=== PATIENT | female | born 1990 | race Caucasian/White ===

== ENCOUNTER 2016-04-16 20:29 | Emergency (ER) | payer BC, OTHER ==
[~2016-04-16] VITALS: Ht 162.6 cm; Wt 72.8 kg
[~2016-04-16 20:29] MED LIST: MTR600X PO; PRENTAB26 PO
[2016-04-16 20:33] VITALS: BP 130/88; PULSE 78; TEMP 36.9; O2SAT 99; Ht 162.6 cm; Wt 72.8 kg
[2016-04-16] MEDS ORDERED: ACETAMINOPHEN 500 MG TAB PO STA (21:04)
--- NOTE | 2016-04-16 21:04 | EMERGENCY ROOM VISIT NOTE ---
ED Visit Note First contact with patient: 20:47 CHIEF COMPLAINT: Head injury HISTORY OF PRESENT ILLNESS: This 25-year-old female patient presented to the emergency department ambulatory after receiving a head injury when she slipped and fell backwards on the steps today. There was no brief loss of consciousness or vomiting. No difficulty with speech. The headache has been moderate. The patient complains of no neck pain. No loss of appetite or unusual behavior since the injury. She has had headache, lightheadedness, dizziness, nausea and fatigue The patient has taken nothing for the pain. The patient rates the pain as 5/10 and mild. The patient denies any changes in their vision or hearing. The patient denies bowel or bladder dysfunction. The patient denies abdominal pain. REVIEW OF SYSTEMS: A 10 system review of systems was completed with positives and pertinent negatives listed in the HPI. ALLERGIES: Macrobid MEDICATIONS: None PMH: Patient denies SOCIAL HISTORY: The patient lives locally with family. She does not smoke PHYSICAL EXAM: Vital Signs: Reviewed Nurse's notes, vital signs stable. GENERAL : This is a 25-year-old female, in no acute distress, well-developed, well- nourished. NEURO: The patient is alert, oriented to person place and time, and coherent. Normal mini mental status exam. Negative Romberg and pronator drift. Cerebellar function intact. HEAD: Normocephalic and atraumatic. EYES: Pupils are equal round and reactive to light and accommodation. EOMs are full and optic discs and fundi are normal. There is no swelling or discoloration of the tissue surrounding the eyes. EARS: External auditory canals clear without blood. NOSE: Patent without tenderness. No septal hematoma. FACE: No facial tenderness. NECK: Supple. There is no cervical spine tenderness. The patient does not have tenderness with movement of the neck. ED COURSE: I examined the patient. She was given Tylenol. CT scan of the brain was negative for intracranial bleeding or skull fracture. The patient likely has a concussion. She was given instructions on head injury, concussion and follow-up with the concussion clinic. She should return with any worsening symptoms The patient was discharged home in good condition ambulatory. CT HEAD WITHOUT CONTRAST (CT) CLINICAL HISTORY: Head pain status post head trauma. Closed head injury. COMPARISON STUDY: No previous studies for comparison. TECHNIQUE: Axial CT of the brain is performed from the vertex to the skull base. IV contrast was not administered for this examination. CT DOSE: 537.48 mGy.cm FINDINGS: No intra or extra-axial mass lesions are visualized. There is no CT evidence of acute cortical infarction. There is no evidence of midline shift. There is no acute hemorrhage. No calvarial fractures are visualized. There is no evidence of pathologic ventricular dilatation. There is partial opacification of the sphenoid sinus. IMPRESSION: 1. Partial opacification of the sphenoid sinus 2. No evidence of acute intracranial injury DIAGNOSIS: Head injury GCS 15 Current/Historical Medications No Active Prescriptions or Reported Meds Allergies Coded Allergies: Nitrofurantoin (Verified Allergy, Unknown, `, 04/16/16) Vital Signs Date Time Temp Pulse Resp B/P Pulse Ox O2 Delivery O2 Flow Rate FiO2 04/16/16 20:33 36.9 78 18 130/88 99 Room Air Medications Administered Medications (Trade) Dose Ordered Sig/Mitchell Route Start Time Stop Time Status Last Admin Dose Admin Acetaminophen (Tylenol Tab) 1,000 mg NOW STAT PO 04/16/16 21:04 04/16/16 21:05 DC 04/16/16 21:12 1,000 MG Departure Information Impression Primary Impression: CHI (closed head injury) Additional Impression: Concussion Dispostion Home / Self-Care Condition GOOD Prescriptions No Active Prescriptions or Reported Meds Referrals Jenniffer Montgomery DO (PCP) Forms HOME CARE DOCUMENTATION FORM, IMPORTANT VISIT INFORMATION, Work Instructions Return To Work: 3 days Patient Instructions ED Concussion, [facility] Additional Instructions Contact the concussion clinic at [facility] sports medicine ([phone]) to schedule a follow-up appointment for further evaluation and management. Their office is located at [address] [place] [address]. [address] No gym or athletics for one week after symptoms resolve Motrin 600mg every 6-8 hours for pain Problem Qualifiers Primary Impression: CHI (closed head injury) Encounter type: initial encounter Qualified Codes: S09.90XA - Unspecified injury of head, initial encounter Additional Impression: Concussion Encounter type: initial encounter Loss of consciousness presence/duration: without LOC Qualified Codes: S06.0X0A - Concussion without loss of consciousness, initial encounter
--- NOTE | 2016-04-16 21:39 | DIAGNOSTIC IMAGING REPORT ---
CT HEAD WITHOUT CONTRAST (CT) CLINICAL HISTORY: Head pain status post head trauma. Closed head injury. COMPARISON STUDY: No previous studies for comparison. TECHNIQUE: Axial CT of the brain is performed from the vertex to the skull base. IV contrast was not administered for this examination. CT DOSE: 537.48 mGy.cm FINDINGS: No intra or extra-axial mass lesions are visualized. There is no CT evidence of acute cortical infarction. There is no evidence of midline shift. There is no acute hemorrhage. No calvarial fractures are visualized. There is no evidence of pathologic ventricular dilatation. There is partial opacification of the sphenoid sinus. IMPRESSION: 1. Partial opacification of the sphenoid sinus 2. No evidence of acute intracranial injury Electronically signed by: Karri Zhang M.D. 04/16/2016 9:37 PM Dictated Date/Time: 04/16/2016 9:36 PM
== END 2016-04-16 22:49 | disposition home or self-care (01) ==
LOC: C.EDB 20:32 → C.EDD 22:49
DX: S06.0X0A Concussion without loss of consciousness, initial encounter (principal); W10.9XXA Fall (on) (from) unspecified stairs and steps, initial encounter

== ENCOUNTER → 2016-08-25 | Outpatient (CLI) | payer OTHER ==
[~2016-08-25] MED LIST changes: -MTR600X PO; +MULT-240 PO; -PRENTAB26 PO
== END | disposition home or self-care (01) ==
LOC: C.PAPS 11:26
PROVIDERS: ATTEND Obstetrics & Gynecology
DX: Z12.4 Encounter for screening for malignant neoplasm of cervix (principal)

== ENCOUNTER 2016-10-01 15:49 | Emergency (ER) | payer OTHER ==
[~2016-10-01] VITALS: Ht 162.6 cm; Wt 69.0 kg
[2016-10-01 16:06] VITALS: TEMP 36.9; Ht 162.6 cm; Wt 69.0 kg
[2016-10-01] MEDS ORDERED: MULT-240 PO (16:33)
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
[2016-10-01 18:22] VITALS: BP 124/79; PULSE 78; O2SAT 98
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
== END 2016-10-01 18:24 | disposition home or self-care (01) ==
LOC: EDBD 15:49 → C.EDA 15:51
DX: S00.83XA Contusion of other part of head, initial encounter (principal); V49.50XA Passenger injured in collision with unspecified motor vehicles in traffic accident, initial encounter; Y92.488 Other paved roadways as the place of occurrence of the external cause; J34.89 Other specified disorders of nose and nasal sinuses; Z83.3 Family history of diabetes mellitus; Z82.49 Family history of ischemic heart disease and other diseases of the circulatory system

== ENCOUNTER 2017-06-02 21:06 | Emergency (ER) | payer OTHER ==
[~2017-06-02] VITALS: Ht 162.6 cm; Wt 73.8 kg
[2017-06-02 21:08] VITALS: TEMP 37.1; Ht 162.6 cm; Wt 73.8 kg
[2017-06-02] MEDS ORDERED: ONDANSETRON INJ 2 MG/ML 2 ML VIAL IV STA (21:20)
[2017-06-02] MEDS ORDERED: SODIUM CHLORIDE 0.9% 1000ML 1,000 ML IV STA (21:20)
[2017-06-02 21:56] LABS: BASO % 0.3 %; BASO ABS # 0.02 K/uL (0-0.2); EOS % 1.8 %; EOS ABS # 0.13 K/uL (0-0.5); HEMATOCRIT 45.2 % (37-47); HEMOGLOBIN 15.6 g/dL (12.0-16.0); IG# 0.01 K/uL (0.00-0.02); LYMPH % 33.3 %; LYMPH ABS # 2.46 K/uL (1.2-3.4); MEAN CELL VOLUME 83.7 fL (80-100); MEAN CORPUSCULAR HEMOGLOBIN 28.9 pg (25-34); MEAN CORPUSCULAR HGB CONC 34.5 g/dl (32-36); MEAN PLATELET VOLUME 9.4 fL (7.4-10.4); MONO % 11.2 %; MONO ABS # 0.83 K/uL (0.11-0.59); NEUT % 53.3 %; NEUT ABS # 3.93 K/uL (1.4-6.5); PLATELET COUNT 266 K/uL (130-400); RED CELL DISTRIBUTION WIDTH CV 12.3 % (11.5-14.5); RED CELL DISTRIBUTION WIDTH SD 37.2 fL (36.4-46.3); WHITE BLOOD COUNT 7.38 K/uL (4.8-10.8)
[2017-06-02 22:14] LABS: ALBUMIN 4.6 gm/dl (3.4-5.0); CALCIUM 9.3 mg/dl (8.5-10.1); CREATININE 0.78 mg/dl (0.60-1.20); POTASSIUM 3.3 mmol/L (3.5-5.1)
[2017-06-02 22:17] LABS: TOTAL PROTEIN 9.6 gm/dl (6.4-8.2)
--- NOTE | 2017-06-02 22:47 | DIAGNOSTIC IMAGING REPORT ---
ABD/PELVIS WITHOUT FOR STONE HISTORY: 27 years-old Female flank pain hematuria with acute bilateral flank pain COMPARISON: None available TECHNIQUE: Multiple axial CT images of the abdomen and pelvis were obtained without contrast. A dose lowering technique was used consistent with the principals of STANLEY. FINDINGS: The lung bases are generally clear. No pneumatosis or pneumoperitoneum identified. Imaged inferior cardiac chambers are unremarkable. Liver, gallbladder, spleen, pancreas and adrenal glands are within normal limits. The left kidney and ureter are unremarkable. There is mild right-sided perinephric stranding with mild dilation of the renal pelvis and proximal right ureter. No obstructing calculus or lesion identified. The remainder of the right ureter appears normal in caliber. Urinary bladder, uterus and adnexa are unremarkable. Trace free pelvic fluid, likely physiologic. Aorta is normal in course and caliber. No bulky adenopathy. There is no bowel obstruction or focal bowel wall thickening identified. The appendix is not definitively seen. No secondary signs of acute appendicitis. Soft tissues are unremarkable. Mild diastases recti. Bones appear to be intact. IMPRESSION: 1. Mild right-sided perinephric stranding with mild dilation of the right renal pelvis and proximal right ureter. No obstructing stone or lesion identified. These findings may be secondary to recently passed calculus or ascending infectious process. Correlate with urinalysis. 2. No bowel obstruction or focal bowel wall thickening. The above report was generated using voice recognition software. It may contain grammatical, syntax or spelling errors. Electronically signed by: Del Dickens M.D. 06/02/2017 10:46 PM Dictated Date/Time: 06/02/2017 10:36 PM
[2017-06-02 22:50] VITALS: BP 108/66; PULSE 85; O2SAT 97
--- NOTE | 2017-06-02 22:58 | EMERGENCY ROOM VISIT NOTE ---
History Report prepared by Roosevelt: Karla Guidry Under the Supervision of: Dr. Denny Rios D.O. First contact with patient: 21:19 Chief Complaint: HEMATURIA Stated Complaint: HEMATURIA, FLANK PAIN, DEHYDRATED History of Present Illness The patient is a 27 year old female who presents to the Emergency Room with complaints of persistent hematuria starting 2 weeks ago. She has been urinating more frequently. She started having flank pain several days ago. She rates her discomfort as a 6/10 in severity. She denies any fever. Her last menstrual period was 2 weeks ago. She has a history of kidney stones. Source of History: patient Onset: 2 weeks ago Position: other (urinary) Symptom Intensity: 6/10 Quality: other (hematuria) Timing: other (persistent) Associated Symptoms: No fevers Note: Pt reports flank pain. Review of Systems See HPI for pertinent positives & negatives. A total of 10 systems reviewed and were otherwise negative. Past Medical & Surgical Medical Problems: (1) 39 weeks gestation of (2) Normal labor Surgical Problems: (1) History of wisdom tooth extraction Family History Diabetes mellitus Hypertension Social History Smoking Status: Never Smoker Alcohol Use: none Drug Use: none Marital Status: Housing Status: lives with family Occupation Status: employed Current/Historical Medications Scheduled Multiple Vitamins W/ Minerals (Womens One Daily), 1 TAB PO DAILY Allergies Coded Allergies: Nitrofurantoin (Verified Allergy, Unknown, `, 06/02/17) Physical Exam Vital Signs Date Time Temp Pulse Resp B/P (MAP) Pulse Ox O2 Delivery O2 Flow Rate FiO2 06/02/17 22:50 85 18 108/66 97 Room Air 06/02/17 21:08 37.1 96 18 119/78 96 Room Air Physical Exam CONSTITUTIONAL/VITAL SIGNS: Reviewed / noted above. GENERAL: Non-toxic in appearance. INTEGUMENTARY: Warm, dry, and [place]. HEAD: Normocephalic. EYES: without scleral icterus or trauma. ENT/OROPHARYNX: clear and moist. LYMPHADENOPATHY/NECK: Is supple without lymphadenopathy or meningismus. RESPIRATORY: Lungs clear and equal. CARDIOVASCULAR: Regular rate and rhythm. GI/ABDOMEN: Soft with mild left sided abdominal tenderness. No organomegaly or pulsatile mass. No rebound or guarding. Normal bowel sounds. EXTREMITIES: Warm and well perfused. BACK: Left CVA tenderness. NEUROLOGICAL: Intact without focal deficits. PSYCHIATRIC: normal affect. MUSCULOSKELETAL: Normally developed with good muscle tone. Medical Decision & Procedures ER Provider Diagnostic Interpretation: Radiology results as stated below per my review and radiologist interpretation: ABD/PELVIS WITHOUT FOR STONE HISTORY: 27 years-old Female flank pain hematuria with acute bilateral flank pain COMPARISON: None available TECHNIQUE: Multiple axial CT images of the abdomen and pelvis were obtained without contrast. A dose lowering technique was used consistent with the principals of STANLEY. FINDINGS: The lung bases are generally clear. No pneumatosis or pneumoperitoneum identified. Imaged inferior cardiac chambers are unremarkable. Liver, gallbladder, spleen, pancreas and adrenal glands are within normal limits. The left kidney and ureter are unremarkable. There is mild right-sided perinephric stranding with mild dilation of the renal pelvis and proximal right ureter. No obstructing calculus or lesion identified. The remainder of the right ureter appears normal in caliber. Urinary bladder, uterus and adnexa are unremarkable. Trace free pelvic fluid, likely physiologic. Aorta is normal in course and caliber. No bulky adenopathy. There is no bowel obstruction or focal bowel wall thickening identified. The appendix is not definitively seen. No secondary signs of acute appendicitis. Soft tissues are unremarkable. Mild diastases recti. Bones appear to be intact. IMPRESSION: 1. Mild right-sided perinephric stranding with mild dilation of the right renal pelvis and proximal right ureter. No obstructing stone or lesion identified. These findings may be secondary to recently passed calculus or ascending infectious process. Correlate with urinalysis. 2. No bowel obstruction or focal bowel wall thickening. The above report was generated using voice recognition software. It may contain grammatical, syntax or spelling errors. Electronically signed by: Del Dickens M.D. 06/02/2017 10:46 PM Dictated Date/Time: 06/02/2017 10:36 PM Laboratory Results 06/02/17 21:45 Red Blood Count 5.40, Mean Corpuscular Volume 83.7, Mean Corpuscular Hemoglobin 28.9, Mean Corpuscular Hemoglobin Concent 34.5, Mean Platelet Volume 9.4, Neutrophils (%) (Auto) 53.3, Lymphocytes (%) (Auto) 33.3, Monocytes (%) (Auto) 11.2, Eosinophils (%) (Auto) 1.8, Basophils (%) (Auto) 0.3, Neutrophils # (Auto ) 3.93, Lymphocytes # (Auto) 2.46, Monocytes # (Auto) 0.83, Eosinophils # (Auto ) 0.13, Basophils # (Auto) 0.02 06/02/17 21:45 Test 06/02/17 21:45 06/02/17 22:00 White Blood Count 7.38 K/uL (4.8-10.8) Red Blood Count 5.40 M/uL (4.2-5.4) Hemoglobin 15.6 g/dL (12.0-16.0) Hematocrit 45.2 % (37-47) Mean Corpuscular Volume 83.7 fL (80-100) Mean Corpuscular Hemoglobin 28.9 pg (25-34) Mean Corpuscular Hemoglobin Concent 34.5 g/dl (32-36) Platelet Count 266 K/uL (130-400) Mean Platelet Volume 9.4 fL (7.4-10.4) Neutrophils (%) (Auto) 53.3 % Lymphocytes (%) (Auto) 33.3 % Monocytes (%) (Auto) 11.2 % Eosinophils (%) (Auto) 1.8 % Basophils (%) (Auto) 0.3 % Neutrophils # (Auto) 3.93 K/uL (1.4-6.5) Lymphocytes # (Auto) 2.46 K/uL (1.2-3.4) Monocytes # (Auto) 0.83 K/uL (0.11-0.59) Eosinophils # (Auto) 0.13 K/uL (0-0.5) Basophils # (Auto) 0.02 K/uL (0-0.2) RDW Standard Deviation 37.2 fL (36.4-46.3) RDW Coefficient of Variation 12.3 % (11.5-14.5) Immature Granulocyte % (Auto) 0.1 % Immature Granulocyte # (Auto) 0.01 K/uL (0.00-0.02) Anion Gap 7.0 mmol/L (3-11) Est Creatinine Clear Calc Drug Dose 104.8 ml/min Estimated GFR () 119.1 Estimated GFR (Non- 102.7 BUN/Creatinine Ratio 7.6 (10-20) Calcium Level 9.3 mg/dl (8.5-10.1) Total Bilirubin 0.4 mg/dl (0.2-1) Direct Bilirubin 0.1 mg/dl (0-0.2) Aspartate Amino Transf (AST/SGOT) 14 U/L (15-37) Alanine Aminotransferase (ALT/SGPT) 29 U/L (12-78) Alkaline Phosphatase 109 U/L (45-117) Total Protein 9.6 gm/dl (6.4-8.2) Albumin 4.6 gm/dl (3.4-5.0) Lipase 100 U/L (73-393) Urine Color YELLOW Urine Appearance CLEAR (CLEAR) Urine pH 6.0 (4.5-7.5) Urine Specific [place] 1.005 (1.000-1.030) Urine Protein NEG (NEG) Urine Glucose (UA) NEG (NEG) Urine Ketones NEG (NEG) Urine Occult Blood TRACE (NEG) Urine Nitrite NEG (NEG) Urine Bilirubin NEG (NEG) Urine Urobilinogen NEG (NEG) Urine Leukocyte Esterase NEG (NEG) Urine WBC (Auto) 0 /hpf (0-5) Urine RBC (Auto) 0-4 /hpf (0-4) Urine Hyaline Casts (Auto) 0 /lpf (0-5) Urine Epithelial Cells (Auto) 5-10 /lpf (0-5) Urine Bacteria (Auto) NEG (NEG) Urine Test NEG (NEG) Laboratory results as stated above per my review. Medications Administered Medications (Trade) Dose Ordered Sig/Mitchell Route Start Time Stop Time Status Last Admin Dose Admin Sodium Chloride 1,000 ml @ 999 mls/hr Q1H1M STAT IV 06/02/17 21:20 06/02/17 22:20 DC 06/02/17 21:43 999 MLS/HR Ondansetron HCl (Zofran Inj) 4 mg NOW STAT IV 06/02/17 21:20 06/02/17 21:21 DC 06/02/17 21:43 4 MG ED Course 2119: Zofran Inj 4 mg IV, NSS 1000 ml @ 999 mls/hr IV. 2120: Previous medical records were reviewed. The patient was evaluated in room C6. A complete history and physical examination was performed. 9: On reevaluation, the patient is resting comfortably. I discussed the results and findings with the patient. She verbalized agreement of the treatment plan. She was discharged home. Medical Decision Differential considered: pancreatitis, hepatitis, or acute cholecystitis, AAA, UTI, pyelonephritis, kidney stones, appendicitis, diverticulitis, shingles, bowel obstruction mesenteric ischemia, intussusception,hernia, ovarian torsion, ruptured ovarian cyst,ectopic , . This is a 27-year-old female who presents to the ED with a chief complaint of hematuria. The patient reports hematuria 2 weeks. She states that she was at [facility] today and had a urine sample done but she states that they did not tell her anything. She denies any fevers. Her last mental period was 2 weeks ago. She does report increased frequency in urination. Vital signs are stable. Her physical exam did reveal left-sided CVA tenderness and mild left lower quadrant abdominal tenderness. The patient CBC and complete metabolic panel are normal. Lipase was negative. CT scan of the abdomen pelvis reveals some mild right-sided perinephric stranding. This could represent an infection versus a recently passed stone. Urinalysis did not show infection. The patient was told the results of the test. She was treated with IV fluids and Zofran IV. She is felt to be stable for discharge. Medication Reconcilliation Current Medication List: was personally reviewed by me Blood Pressure Screening Patient's blood pressure: Normal blood pressure Blood pressure disposition: Did not require urgent referral Impression Primary Impression: Hematuria Scribe Attestation The scribe's documentation has been prepared under my direction and personally reviewed by me in its entirety. I confirm that the note above accurately reflects all work, treatment, procedures, and medical decision making performed by me. Departure Information Dispostion Home / Self-Care Referrals Jenniffer Montgomery DO (PCP) Patient Instructions My [facility] Additional Instructions Your test results today did not show any acute abnormalities. Follow-up with your doctor for further evaluation.
== END 2017-06-02 23:06 | disposition home or self-care (01) ==
LOC: C.EDB 21:07 → C.EDC 23:06
DX: R31.9 Hematuria, unspecified (principal); R35.0 Frequency of micturition; Z82.49 Family history of ischemic heart disease and other diseases of the circulatory system; Z83.3 Family history of diabetes mellitus; Z88.1 Allergy status to other antibiotic agents

== ENCOUNTER 2019-08-19 13:12 | Inpatient (IN) ==
--- OUTSIDE RECORDS SUMMARY | 2019-08-19 13:14 | External Medical Summary | Continuity of Care Document ---
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 Refills: 0 Amoxicillin CAPS , M.D. Refills: 0 Procedures History of Oral Surgery Tooth Extraction Status: Completed Immunizations HPV (Gardasil) On: 29-Sep-2009 HPV (Gardasil) On: 29-Jan-2010 15:14 Lot #: [id number], [employer] HPV (Gardasil) On: 29-May-2010 15:19 Lot #: [id number], [employer] Family History Grandmother Family history of Diabetes Mellitus (V18.0) Status: Active Social History - Smoking Status Tobacco smoking consumption unknown Ex-smoker Plan of Treatment Planned Observations Planned Goals not documented Results No Known Results Results not documented Encounters Appointment; Rosie Thomason M.D. 13-Oct-2018 14:00 Encounter Diagnosis: Problem not documented Appointment; Rosie Thomason M.D. 05-Dec-2017 14:50 Encounter Diagnosis: Problem not documented
--- OUTSIDE RECORDS SUMMARY | 2019-08-19 13:15 | External Medical Summary | Continuity of Care Document ---
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
[2019-08-19] MEDS ORDERED: SODIUM CHLORIDE 0.9% 1000ML 1,000 ML IV ONE (13:33)
[2019-08-19] MEDS ORDERED: KETOROLAC 30 MG/ML VIAL IV STA (14:04)
[2019-08-19] MEDS ORDERED: DEXAMETHASONE **PF** INJ 10 MG/ML VIAL IV ONE (14:04)
[2019-08-19] MEDS ORDERED: CLINDAMYCIN 900 MG in DEXTROSE 5% 50 ML IV ONE (14:04)
[2019-08-19 14:11] LABS: Basophils # (auto) 0.02 K/uL (0-0.2); Basophils % (auto) 0.2 %; Eosinophils # (auto) 0.28 K/uL (0-0.5); Hematocrit (blood only) 39.7 % (37-47); Hemoglobin 13.5 g/dL (12.0-16.0); Immature Granulocytes # (auto) 0.02 K/uL (0.00-0.02); Immature Granulocytes % (auto) 0.2 %; Lymphocytes # (auto) 1.68 K/uL (1.2-3.4); Lymphocytes % (auto) 17.7 %; Mean Corpuscular Hemoglobin 29.3 pg (25-34); Mean Corpuscular Volume 86.1 fL (80-100); Mean Platelet Volume 9.3 fL (7.4-10.4); Monocytes # (auto) 0.96 K/uL (0.11-0.59); Monocytes % (auto) 10.1 %; Neutrophils # (auto) 6.53 K/uL (1.4-6.5); Neutrophils % (auto) 68.8 %; Platelet Count 286 K/uL (130-400); RDW Coefficient of Variation 12.3 % (11.5-14.5); RDW Standard Deviation 38.3 fL (36.4-46.3); Red Blood Count 4.61 M/uL (4.2-5.4); White Blood Count 9.49 K/uL (4.8-10.8)
[2019-08-19 14:19] LABS: Albumin Level 3.9 gm/dl (3.4-5.0); BUN Creatinine Ratio 12.2 (10-20); Calcium 9.1 mg/dl (8.5-10.1); Creatinine Clr Calc Pharmacy 107.6 ml/min; Est GFR (African American) 127.2; Est GFR (Non-African American) 109.7; Potassium 3.6 mmol/L (3.5-5.1)
[2019-08-19 14:23] LABS: Albumin Globulin Ratio 0.8 (0.9-2); Bilirubin,Total 0.7 mg/dl (0.2-1); Globulin 5.1 gm/dl (2.5-4.0)
--- NOTE | 2019-08-19 15:12 | Emergency Department Note ---
History of Present Illness General Chief complaint: Throat Pain Stated complaint: ABCESS IN BACK OF THROAT Time Seen by Provider: 08/19/19 13:25 History of Present Illness Maximum Pain Intensity: 6 29-year-old female who presents to the emergency department with complaint of possible peritonsillar abscess. The patient reports that she has had a sore throat for the past 2 weeks. She does report history of recurrent strep tonsillitis as a child. She reports that she was seen by ENT who recommended tonsillectomy, but the patient never had the procedure performed. The patient reports difficulty eating and drinking fluids now. The patient has not had anything to eat since last night. She did drink some water on the way to a [facility] urgent care clinic this morning, where they redirected her to the emergency department for further treatment. The patient denies any fever or c hills. She currently rates her discomfort an 8 out of 10. Home Medications Home Medications Medication Instructions Recorded Confirmed Type ttuuywd-gxiitevietnlv-avaqiqoq 2 tab PO Q6H PRN 08/19/19 08/19/19 History [Excedrin Extra Strength] cc-np-eutz-FA-Ca carb-vit K 1 tab PO QAM 08/19/19 08/19/19 History [Women's Multivitamin] Allergies Allergy/AdvReac Type Severity Reaction Status Date / Time nitrofurantoin Allergy Unknown ` Verified 08/19/19 14:26 Past Med/Surg History Medical History Concussion (Acute) Recurrent streptococcal tonsillitis Surgical History History of wisdom tooth extraction Social History Preferred Language: Romanian Communication Ability: Effective 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 Required: No Beliefs That Will Affect Care: None marital status: Single Current Living Situation: Family and Other Current Living Situation Comment: 2 children current occupational status: employed Other Information That Helps Us Care for You: No Feels Safe at Home: Yes Safety Concerns: Feels Safe At This Time Smoking Status: Never smoker Hx Alcohol Use: Yes Alcohol type: beer, wine and hard liquor Hx Substance Use: No Review of Systems 10 system review was performed and was negative except for pertinent positives and negatives as indicated in history of present illness Physical Exam Vital Signs Vital Signs - 24 hr 08/19/19 13:15 08/19/19 15:15 08/19/19 17:15 Temperature 36.7 C Temperature Source Oral Pulse Rate 89 Pulse Rate [Finger] 70 72 Pulse Rhythm Regular Pulse Rhythm [Finger] Regular Regular Pulse Strength Normal Pulse Strength [Finger] Normal Normal Respiratory Rate 18 18 18 Respiratory Effort / Characteristics Non-Labored Spontaneous Non-Labored Spontaneous Non-Labored Spontaneous Respiratory Depth Normal Normal Normal Respiratory Pattern Regular Regular Regular Blood Pressure 120/75 Blood Pressure [Right Arm] 104/67 Blood Pressure Mean 90 Blood Pressure Mean [Right Arm] 79 Blood Pressure Position Sitting Blood Pressure Position [Right Arm] Lying Pulse Oximetry 97 98 99 Oxygen Delivery Method Room Air Room Air Room Air Sepsis Recent Fever Within 48 Hours No Sepsis New/Unexplained Change in Mental Status No Sepsis Action Taken by Nursing No Action Required CONSTITUTIONAL: Healthy and well nourished. Alert and oriented X 3. Patient does not appear acutely ill or toxic, and also does not appear in any acute distress. HEENT: Normocephalic, atraumatic. Pupils equal, round and reactive. No facial edema noted. Ears and nares are clear. Examination of the oropharynx shows a notable trismus with the patient only able to open her incisors approximately 2 cm. She also has notable left tonsillar hypertrophy with mild uvular deviation. Minimal exudates noted. No elevated tongue or evidence for Eduardo's angina. NECK: Full active range of motion without discomfort. LYMPHATICS: Mild anterior cervical chain adenopathy noted. RESPIRATORY: Clear to auscultation bilaterally with no wheezing, crackles, rhonchi or stridor. CARDIOVASCULAR: Regular rate and rhythm with no murmurs, rubs or gallops. GASTROINTESTINAL: Bowel sounds present in all quadrants. Soft and nontender wi thout hepatosplenomegaly. MUSCULOSKELETAL: Full range of motion of all joints without discomfort. INTEGUMENTARY: No rash or other significant dermatologic conditions noted. HEMATOLOGIC: No ecchymosis or petechiae. PSYCHIATRIC: Positive affect. NEUROLOGIC: No focal neurologic deficits noted. Course Course Patient history and physical exam were performed. Nurse's notes were reviewed. Vital signs were reviewed and were normal. IV access was established, and labs were drawn. The patient was hydrated with a liter normal saline, and administered IV Decadron, clindamycin and Toradol. In the meantime, I did contact Dr. Dailey, ENT on-call, who requested a CT of the neck to determine the size of the tonsillar abscess. She also agreed with current medication management, and asked that I return the call once CT imaging has been completed. The patient did report mild relief of symptoms with the above treatment. Labs were reviewed to show no significant leukocytosis or other abnormal labs. CT of the neck with IV contrast confirms a peritonsillar abscess with mild airway narrowing. The case was further re-discussed with Dr. Dailey who has recommended admission for IV antibiotics, and she will reassess the patient tomorrow. The case was also discussed with Dr. Rios, ED attending physician, who [facility] (Dr. Delong). Please see their dictations for further treatment and final disposition. Administered Medications Ampicillin Sodium/Sulbactam Sodium 3,000 mg/ Sodium Chloride 108 mls @ 200 mls /hr IV Q6H AELYDA; Protocol Stop: 08/29/19 19:59 Last Infusion: 08/19/19 21:15 Dose: 0 mls/hr Documented by: [id number] Admin: 08/19/19 20:39 Dose: 200 mls/hr Documented by: [id number] Dexamethasone Sodium Phosphate (10 mg/ Syringe) 2.5 mls @ 1 mls/min IV Q8 ALEYDA Stop: 08/20/19 14:03 Last Admin: 08/19/19 22:53 Dose: 1 mls/min Documented by: [id number] Sodium Chloride (Nss) 500 mls @ 60 mls/hr IV .Q8H20M ALEYDA Stop: 08/20/19 04:49 Last Admin: 08/19/19 20:39 Dose: 60 mls/hr Documented by: [id number] Discontinued Medications Dexamethasone Sodium Phosphate (Decadron Pf) 10 mg IV NOW ONE Stop: 08/19/19 14:05 Last Admin: 08/19/19 14:41 Dose: 10 mg Documented by: [id number] Sodium Chloride (Nss 1000ml) 1,000 mls @ 999 mls/hr IV .Q1H1M ONE Stop: 08/19/19 14:33 Last Infusion: 08/19/19 15:01 Dose: 0 mls/hr Documented by: [id number] Admin: 08/19/19 14:00 Dose: 999 mls/hr Documented by: [id number] Clindamycin Phosphate 900 mg/ (Dextrose) 56 mls @ 112 mls/hr IV ONE ONE Stop: 08/19/19 14:33 Last Infusion: 08/19/19 15:11 Dose: 0 mls/hr Documented by: [id number] Admin: 08/19/19 14:41 Dose: 112 mls/hr Documented by: [id number] Ioversol (Optiray 320 100ml) 93 ml IV ONCE PRN PRN Reason: Interaction Checking Stop: 08/23/19 15:26 Last Admin: 08/19/19 15:32 Dose: 93 ml Documented by: [id number] Ketorolac Tromethamine (Toradol) 30 mg IV NOW STA Stop: 08/19/19 14:05 Last Admin: 08/19/19 14:41 Dose: 30 mg Documented by: [id number] Medical Decision Making Medical Records Attestation: I reviewed the patient's medical records. Home Medications Current Medication List: was personally reviewed by me Laboratory Data Attestation: I reviewed the patient's lab results. Result diagrams: 08/19/19 13:55 08/19/19 13:55 Lab Results 08/19/19 08/19/19 Range/Units 13:55 13:55 WBC 9.49 (4.8-10.8) K/uL RBC 4.61 (4.2-5.4) M/uL Hgb 13.5 (12.0-16.0) g/dL Hct 39.7 (37-47) % MCV 86.1 (80-100) fL MCH 29.3 (25-34) pg MCHC 34.0 (32-36) g/dL RDW Std Deviation 38.3 (36.4-46.3) fL RDW Coeff of Johny 12.3 (11.5-14.5) % Plt Count 286 (130-400) K/uL MPV 9.3 (7.4-10.4) fL Immature Gran % (Auto) 0.2 % Neut % (Auto) 68.8 % Lymph % (Auto) 17.7 % Hill % (Auto) 10.1 % Eos % (Auto) 3.0 % Baso % (Auto) 0.2 % Immature Gran # (Auto) 0.02 (0.00-0.02) K/uL Neut # (Auto) 6.53 H (1.4-6.5) K/uL Lymph # (Auto) 1.68 (1.2-3.4) K/uL Hill # (Auto) 0.96 H (0.11-0.59) K/uL Eos # (Auto) 0.28 (0-0.5) K/uL Baso # (Auto) 0.02 (0-0.2) K/uL Sodium 138 (136-145) mmol/L Potassium 3.6 (3.5-5.1) mmol/L Chloride 105 (98-107) mmol/L Carbon Dioxide 27 (21-32) mmol/L Anion Gap 6.0 (3-11) BUN 9 (7-18) mg/dl Creatinine 0.73 (0.6-1.2) mg/dl Est Cr Clr Drug Dosing 107.6 ml/min Est GFR ( Amer) 127.2 Est GFR (Non-Af Amer) 109.7 BUN/Creatinine Ratio 12.2 (10-20) Glucose 92 (70-99) mg/dl Calcium 9.1 (8.5-10.1) mg/dl Total Bilirubin 0.7 (0.2-1) mg/dl AST 15 (15-37) U/L ALT 37 (12-78) U/L Alkaline Phosphatase 86 (45-117) U/L Total Protein 9.0 H (6.4-8.2) gm/dl Albumin 3.9 (3.4-5.0) gm/dl Globulin 5.1 H (2.5-4.0) gm/dl Albumin/Globulin Ratio 0.8 L (0.9-2) Imaging Data Attestation: I personally reviewed and interpreted this imaging study as kt murphy: My Impression: My interpretation of the CT of the neck with IV contrast confirms a left peritonsillar abscess with mild airway narrowing. Radiologist report was also reviewed. Radiologist's Impression: CT OF THE NECK WITH IV CONTRAST CLINICAL HISTORY: Left peritonsillar abscess. COMPARISON STUDY: No previous studies for comparison. TECHNIQUE: Following IV administration of 93 mL of Optiray-320, helical axial images of the neck were obtained. Sagittal and coronal reconstructions were viewed. Automated exposure control was utilized for the study. A dose lowering technique was utilized adhering to the principles of ALARA. CT DOSE: 374.98 mGy.cm FINDINGS: Visualized portions of the intracranial contents are unremarkable. Mastoid air cells are clear. Sinuses are clear. Note is made of enlargement and hyperemia of the palatine tonsils. There is a 1.4 x 0.9 cm left peritonsillar hypodense focus on image 134 of 349. There is moderate adjacent inflammation which extends inferiorly. This has mild peripheral enhancement. This effaces the oropharynx. There is mild airway narrowing. The airway is patent. There is no soft tissue gas. No additional fluid collections are present. Multiple mildly enlarged left cervical lymph nodes are likely reactive. Inflammation extends into the left submandibular space. Lung apices are clear. Major vasculature of the neck is patent. IMPRESSION: 1. Enlargement and hyperemia of the palatine tonsils consistent with acute tonsillitis. 1.4 x 0.9 cm left peritonsillar hypodense focus which suggests a small developing peritonsillar abscess. Moderate associated inflammation effaces the oropharynx with mild airway narrowing. 2. Multiple mildly enlarged left cervical lymph nodes which are likely reactive. Blood Pressure Blood Pressure Findings: Normal blood pressure MDM Narrative Cup today is suggestive of a left peritonsillar abscess that is not amenable for drainage right now. The patient also has mild airway narrowing from this infection. ENT has recommended IV antibiotics and further reassessment tomorrow. The patient is currently afebrile and does not have any significant leukocytosis. CT imaging does not show evidence for retropharyngeal or Eduardo's abscess. Impression & Plan Peritonsillar abscess Discharge Plan Visit Data *Final* Discharge Date/Time: 08/19/19 19:15 Chief Complaint: Throat Pain Stated Complaint: ABCESS IN BACK OF THROAT ED Provider: Denny Rios ED Midlevel Provider: Pietro Coffman Discharge Problem: Peritonsillar abscess Patient Disposition: Admitted As Inpatient Discharge Instructions Interventions: ED Discharge Assessment Last Done: 08/19/19 19:15
[2019-08-19] MEDS ORDERED: IOVERSOL 100ml IV PRN (15:27)
--- NOTE | 2019-08-19 15:52 | CT Scan Report ---
CT OF THE NECK WITH IV CONTRAST CLINICAL HISTORY: Left peritonsillar abscess. COMPARISON STUDY: No previous studies for comparison. TECHNIQUE: Following IV administration of 93 mL of Optiray-320, helical axial images of the neck wer e obtained. Sagittal and coronal reconstructions were viewed. Automated exposure control was utiliz ed for the study. A dose lowering technique was utilized adhering to the principles of ALARA. CT DOSE: 374.98 mGy.cm FINDINGS: Visualized portions of the intracranial contents are unremarkable. Mastoid air cells are c lear. Sinuses are clear. Note is made of enlargement and hyperemia of the palatine tonsils. There is a 1.4 x 0.9 cm left peritonsillar hypodense focus on image 134 of 349. There is moderate adjacent inf lammation which extends inferiorly. This has mild peripheral enhancement. This effaces the oropharynx . There is mild airway narrowing. The airway is patent. There is no soft tissue gas. No additional fl uid collections are present. Multiple mildly enlarged left cervical lymph nodes are likely reactive. Inflammation extends into the left submandibular space. Lung apices are clear. Major vasculature of t he neck is patent. IMPRESSION: 1. Enlargement and hyperemia of the palatine tonsils consistent with acute tonsillitis. 1.4 x 0.9 cm left peritonsillar hypodense focus which suggests a small developing peritonsillar abscess. Moderate associated inflammation effaces the oropharynx with mild airway narrowing. 2. Multiple mildly enlarged left cervical lymph nodes which are likely reactive. ACT 112: Negative or not required by law. Electronically signed by: Jameel Estrella M.D. 08/19/2019 3:50 PM
--- NOTE | 2019-08-19 18:22 | History & Physical Report ---
Date of Service August 19, 2019 Assessment & Plan (1) Peritonsillar abscess: (2) Sore throat: present on admission with worsening sore throat Soft Tissue Neck showed enlargement and hyperemia of the palatine tonsils consistent with acute tonsillitis. 1.4 x 0.9 cm left peritonsillar hypodense focus which suggests a small developing peritonsillar abscess. Moderate associated inflammation effaces the oropharynx with mild airway narrowing. Received IV Clinda and Decadron in the ER Denies any difficulty to breath ENT Consult Will start on IV Unasyn Case discussed with ENT Dr. Dailey that recommended IV Decadron 10mg x 3 doses and soft diet No plan for any surgical procedure since the Peritonsillar abscess is small Will do Toradol for pain Will monitor her closely Lymph Node Enlargement Mostly related to the acute tonsillitis CT showed multiple mildly enlarged left cervical lymph nodes which are likely reactive. DVT px encourage patient to ambulate CODE Status Full code History of Present Illness Chief Complaint: Sore Throat Primary Care Provider: Jenniffer Montgomery DO 29-year-old female with past medical history of recurrent strep was seen at the [facility] urgent care this morning and sent for to the ER for worsening sore throat. Pt said that she has been having sore throat for about 2 weeks. She said that sore throat worst when she tries to eat or drink. She said that she has not eaten much today because of the sore throat. She said that her pain is about 8 out 10 in intensity. She said that last night she had chills. She said that she saw ENT in the past who recommended tonsillectomy, but never had a chance to schedule. CT soft tissue neck showed enlargement and hyperemia of the palatine tonsils consistent with acute tonsillitis. 1.4 x 0.9 cm left peritonsillar hypodense focus which suggests a small developing peritonsillar abscess. Moderate associated inflammation effaces the oropharynx with mild airway narrowing. Denies any chest pain, palpitation, dizziness, fever, recent traveling or any known exposure to anyone tested positive with COVID-19. Allergies Allergy/AdvReac Type Severity Reaction Status Date / Time nitrofurantoin Allergy Unknown ` Verified 08/19/19 14:26 Home Medications Home Medications Medication Instructions Recorded Confirmed Type lwjtods-tvtwerbkreszr-vnfxtpmk 2 tab PO Q6H PRN 08/19/19 08/19/19 History [Excedrin Extra Strength] kl-ah-cxft-FA-Ca carb-vit K 1 tab PO QAM 08/19/19 08/19/19 History [Women's Multivitamin] Past Med/Surg History Medical History Concussion (Acute) Recurrent streptococcal tonsillitis Surgical History History of wisdom tooth extraction Social History Preferred Language: Faroese Communication Ability: Effective 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 Beliefs That Will Affect Care: None marital status: Single Current Living Situation: Family and Other Current Living Situation Comment: 2 children current occupational status: employed Other Information That Helps Us Care for You: No Feels Safe at Home: Yes Safety Concerns: Feels Safe At This Time Smoking Status: Never smoker Hx Alcohol Use: Yes Alcohol type: beer, wine and hard liquor Hx Substance Use: No Review of Systems Review of Systems: All systems reviewed & are unremarkable except as noted in HPI & below Physical Exam Physical Exam: General- No acute distress Head- atraumatic Eyes- PERRL, EOMI, ENT- L tonsil enlarge Neck- no JVD, +lymph node tenderness in left side of the neck Lungs- clear to auscultation Heart- regular rhythm; no murmur Abdomen- normal bowel sounds, soft, nontender Extremities- no calf tenderness Neuro- alert, oriented x 3; PERRL, EOMI; no facial palsy; no dysarthria Skin- warm & dry Results & Data Results & Data ([facility]) Vital Signs (Past 12 Hours) Vital Signs Temp Pulse Pulse Resp BP BP Pulse Ox 08/19/19 17:15 72 18 99 08/19/19 15:15 70 18 104/67 98 08/19/19 13:15 36.7 C 89 18 120/[address] OF THE NECK WITH IV CONTRAST CLINICAL HISTORY: Left peritonsillar abscess. COMPARISON STUDY: No previous studies for comparison. TECHNIQUE: Following IV administration of 93 mL of Optiray-320, helical axial images of the neck were obtained. Sagittal and coronal reconstructions were viewed. Automated exposure control was utilized for the study. A dose lowering technique was utilized adhering to the principles of ALARA. CT DOSE: 374.98 mGy.cm FINDINGS: Visualized portions of the intracranial contents are unremarkable. Mastoid air cells are clear. Sinuses are clear. Note is made of enlargement and hyperemia of the palatine tonsils. There is a 1.4 x 0.9 cm left peritonsillar hypodense focus on image 134 of 349. There is moderate adjacent inflammation which extends inferiorly. This has mild peripheral enhancement. This effaces the oropharynx. There is mild airway narrowing. The airway is patent. There is no soft tissue gas. No additional fluid collections are present. Multiple mildly enlarged left cervical lymph nodes are likely reactive. Inflammation extends into the left submandibular space. Lung apices are clear. Major vasculature of the neck is patent. IMPRESSION: 1. Enlargement and hyperemia of the palatine tonsils consistent with acute tonsillitis. 1.4 x 0.9 cm left peritonsillar hypodense focus which suggests a small developing peritonsillar abscess. Moderate associated inflammation effaces the oropharynx with mild airway narrowing. 2. Multiple mildly enlarged left cervical lymph nodes which are likely reactive. ACT 112: Negative or not required by law. Electronically signed by: Jameel Estrella M.D. 08/19/2019 3:50 PM Dictated: 08/19/19 1544 Transcribed: 08/19/19 1544
[2019-08-19] MEDS ORDERED: DEXAMETHASONE SOD INJ 4 MG/ML VIAL IV SCH (19:30)
[2019-08-19] MEDS ORDERED: KETOROLAC TROMETHAMINE 15 MG/ML VIAL IV PRN (20:17)
[2019-08-19] MEDS ORDERED: SODIUM CHLORIDE 0.9% 500 ML IV SCH (20:30)
[2019-08-19] MEDS: AMPICILLIN/SULBACTAM SOD 3,000 MG in 0.9 % SODIUM CHLORIDE 100 ML IV SCH (20:39)
[2019-08-19] MEDS: DEXAMETHASONE SOD PHOSPHATE 10 MG in SYRINGE 0 ML IV SCH (22:53)
[2019-08-20] MEDS: AMPICILLIN/SULBACTAM SOD 3,000 MG in 0.9 % SODIUM CHLORIDE 100 ML IV SCH ×3 (03:02→12:58)
[2019-08-20] MEDS: DEXAMETHASONE SOD PHOSPHATE 10 MG in SYRINGE 0 ML IV SCH ×2 (05:17→12:58)
--- NOTE | 2019-08-20 09:16 | ENT Consultation ---
Date of Consultation August 20, 2019 Assessment & Plan (1) Peritonsillar abscess: 29yF with early L [employer]ERY, significantly improved on IV abx and steroids. No drainable fluid collection on initial CT scan, no clinical signs of significant [employer] today. -OK for discharge home today -Discharge on augmentin x10 days, medrol dosepak -Call our office at [phone] or present to ED with worsening throat pain, dysphagia, respiratory compromise -Follow up in 1-2 weeks. Our office will contact patient to schedule History of Present Illness Reason for Consultation: L [employer]ILL[employer] Attending Physician: Matthew Maldonado MD History of Present Illness 29yF previously healthy admitted with small L [employer]ILLERY. Patient reports intermittent sore throat x2 weeks. Then developed worsening L throat pain, otalgia, jaw pain, odynphagia, trismus 2 days ago. Subjective fever 2 days ago. Presented to the ED yesterday and CT neck showed 1.4cm L peritonsillar fluid collection. AFVSS, WBC 9. Admitted and treated with unasyn, decadron 10mg Q8H. Significantly improved this AM, eating breakfast during exam. No previous episodes of [employer]ILLERY. History of recurrent strep pharyngitis as a child but not recently. +snoring. Allergies Allergy/AdvReac Type Severity Reaction Status Date / Time nitrofurantoin Allergy Unknown ` Verified 08/19/19 14:26 Home Medications Home Medications Medication Instructions Recorded Confirmed Type kqzzftj-ezrkabqynmfko-iczyjidd 2 tab PO Q6H PRN 08/19/19 08/19/19 History [Excedrin Extra Strength] ie-oh-jfle-FA-Ca carb-vit K 1 tab PO QAM 08/19/19 08/19/19 History [Women's Multivitamin] Patient History Medical History Concussion (Acute) Recurrent streptococcal tonsillitis Surgical History History of wisdom tooth extraction Social History Preferred Language: Bulgarian Communication Ability: Effective 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 Head and Face: Skull: No obvious deformities Sinus tenderness: There is no tenderness to palpation of the sinuses. Salivary glands: The parotid and submandibular glands are normal in appearance and there are no masses on palpation. Facial strength: Facial motion is symmetric and without weakness. Eyes: Eyelids: There is no periorbital edema. Conjunctiva: There is no conjunctival erythema. Pupils: The pupils are equal, round, and reactive to light. Extraocular muscles: Extraocular movement is normal. Nystagmus: There is no nystagmus. Ears: Right auricle: The pinna is normally formed without skin lesion or mass. Left auricle: The pinna is normally formed without skin lesion or mass. Hearing: Clinical speech reception centre manager threshold testing is grossly normal. Nose: External: There is no gross external deformity, tenderness, or skin lesion or mass. Mucosa: There is no nasal mucosal edema, inflammation, lesion, or mass. Septum: The nasal septum is midline. Nasal cavity: There is no inferior turbinate hypertrophy, edema, inflammation, or mass bilaterally. The inferior meatus and middle meatus were clear bilaterally without mass, lesion, mucopurulence, or polyposis. Oral cavity/Oropharynx: Lips: There are no lip lesions or masses. Oral cavity: There is no inflammation, lesion, or mass involving the gums, gingiva, floor of mouth, buccal mucosa, retromolar trigone, hard palate, soft palate, tongue. Dentition is intact. NO SIGNFICANT TRISMUS. MANAGING SECRETIONS EASILY, SWALLOWING BREAKFAST WITHOUT DIFFICULTY Oropharynx: MILD L>R TONSILLAR HYPERTROPHY WITHOUT UVULAR DEVIATION, SOFT PALATE EDEMA. NO EXUDATE OR ERYTHEMA. Neck: General: There are no visible scars or lesions involving the neck. There are no visible or palpable masses involving the neck. The trachea is midline. Lymph nodes: 1CM PALPABLE L LEVEL II NODE Thyroid: There is no visible or palpable thyroid enlargement or nodularity. Respiratory/Pulmonary: There is no stertor or stridor. There is normal respiratory effort without acute distress. Cardiovascular: There is no visible extremity edema. Skin: There are no visible lesions or masses involving the skin of the head and neck region. Neurological: Cranial nerves: Cranial nerve II is noted to be intact by grossly normal visual acuity. Cranial nerves III, IV, and are noted to be intact by normal extraocular movements. Cranial nerve V is noted to be intact by normal facial sensation. Cranial nerve VII is noted to be intact by symmetric and normal facial movement. Cranial nerve VIII is noted to be intact by a relatively normal clinical speech reception centre manager threshold. Cranial nerve IX is noted to be intact by an intact gag reflex and normal palatal movement. Cranial nerve X is noted to be intact by a normal voice. Cranial nerve XI is noted to be intact by normal shoulder and head movement. Cranial nerve XII is noted to be intact by normal symmetric tongue movement. Vestibular system: The patient has a normal gait. There is no spontaneous or gaze evoked nystagmus. Psychiatric: Mental status: The patient is awake and alert. Mood/affect: The patient has a normal mood and affect. Results & Data ([facility]) Vital Signs (Past 12 Hours) Vital Signs Temp Pulse Resp BP Pulse Ox 08/20/19 07:11 36.7 C 64 16 110/70 96 08/19/19 23:43 36.7 C 74 15 105/65 97 PG Care Time/CCT Total # of Minutes Spent Total Time Spent with Patient: Total time spent is greater than 50% in coordination of care (as documented) at patient's floor/unit and/or counseling patient: Coding Level of Care Code 05915 Inpt Consult Level 4 Diagnoses Peritonsillar abscess J36
--- NOTE | 2019-08-20 11:27 | Hospitalist Progress Note ---
Date of Service August 20, 2019 Assessment & Plan (1) Peritonsillar abscess: (2) Sore throat: presented with worsening sore throat CT Neck showed enlargement and hyperemia of the palatine tonsils consistent with acute tonsillitis. 1.4 x 0.9 cm left peritonsillar hypodense focus which suggests a small developing peritonsillar abscess. Moderate associated inflammation effaces the oropharynx with mild airway narrowing on admission Received IV Clinda and Decadron in the ER Denies any difficulty to breathe ENT Consulted Started on IV Unasyn Case discussed with ENT Dr. Dailey that recommended IV Decadron 10mg x 3 doses and soft diet No plan for any surgical procedure since the Peritonsillar abscess is small Toradol for pain Dr. Dailey evaluated the patient this morning, plan to discharge patient on Augmentin and Medrol pack. Plan to follow-up with ENT in 1 to 2 weeks. Lymph Node Enlargement Mostly related to the acute tonsillitis CT showed multiple mildly enlarged left cervical lymph nodes which are likely reactive. DVT px encourage patient to ambulate CODE Status Full code Dispo: Plan to discharge home and close follow-up with ENT. Admission and Anticipated Discharge Date Admission Date: August 19, 2019 Subjective No acute events overnight. Patient is feeling much better since yesterday, she is able to swallow without much difficulty. Says that before she had difficulty opening her mouth as well, now she does not have a problem anymore either. She was evaluated by Dr. Dailey, from ENT this morning and plan for discharge today with p.o. Augmentin and Medrol pack. Patient is aware and agrees with the plan. She will follow-up with Dr. Dailey in 1 to 2 weeks. Patient is sitting up in her bed, in no acute distress, denies any fevers, chills, chest pain, shortness of breath, abdominal pain, nausea or vomiting. Says that she was able to eat well in the hospital and does not have any trouble s with breathing. Review of Systems Review of Systems: All systems reviewed & are unremarkable except as noted in HPI & below Constitutional: no fever and no chills Respiratory: no cough and no dyspnea Cardiovascular: no chest pain and no palpitations Gastrointestinal: no abdominal pain, no nausea and no vomiting Physical Exam Physical Exam: General -Young female sitting up in bed, in no acute distress Head-normocephalic, atraumatic Eyes- PERRL, EOMI, ENT- L tonsil enlarge Neck- no JVD, + slight lymph node tenderness in left side of the neck Lungs- clear to auscultation bilaterally, no wheezing or rhonchi noted Heart- regular rhythm; no murmur Abdomen- normal bowel sounds, soft, nontender Extremities- no calf tenderness, moves extremities spontaneously Neuro- alert, oriented x 3; PERRL, EOMI; no facial palsy; no dysarthria, no extremity spontaneously Skin- warm & dry Results & Data Results & Data ([facility]) Vital Signs (Past 12 Hours) Vital Signs Temp Pulse Resp BP Pulse Ox 08/20/19 07:11 36.7 C 64 16 110/70 96 08/19/19 23:43 36.7 C 74 15 105/65 97 Laboratory Results 08/19/19 08/19/19 Range/Units 13:55 13:55 WBC 9.49 (4.8-10.8) K/uL RBC 4.61 (4.2-5.4) M/uL Hgb 13.5 (12.0-16.0) g/dL Hct 39.7 (37-47) % MCV 86.1 (80-100) fL MCH 29.3 (25-34) pg MCHC 34.0 (32-36) g/dL RDW Std Deviation 38.3 (36.4-46.3) fL RDW Coeff of Johny 12.3 (11.5-14.5) % Plt Count 286 (130-400) K/uL MPV 9.3 (7.4-10.4) fL Immature Gran % (Auto) 0.2 % Neut % (Auto) 68.8 % Lymph % (Auto) 17.7 % [place] % (Auto) 10.1 % Eos % (Auto) 3.0 % Baso % (Auto) 0.2 % Immature Gran # (Auto) 0.02 (0.00-0.02) K/uL Neut # (Auto) 6.53 H (1.4-6.5) K/uL Lymph # (Auto) 1.68 (1.2-3.4) K/uL [place] # (Auto) 0.96 H (0.11-0.59) K/uL Eos # (Auto) 0.28 (0-0.5) K/uL Baso # (Auto) 0.02 (0-0.2) K/uL Sodium 138 (136-145) mmol/L Potassium 3.6 (3.5-5.1) mmol/L Chloride 105 (98-107) mmol/L Carbon Dioxide 27 (21-32) mmol/L Anion Gap 6.0 (3-11) BUN 9 (7-18) mg/dl Creatinine 0.73 (0.6-1.2) mg/dl Est Cr Clr Drug Dosing 107.6 ml/min Est GFR ( Amer) 127.2 Est GFR (Non-Af Amer) 109.7 BUN/Creatinine Ratio 12.2 (10-20) Glucose 92 (70-99) mg/dl Calcium 9.1 (8.5-10.1) mg/dl Total Bilirubin 0.7 (0.2-1) mg/dl AST 15 (15-37) U/L ALT 37 (12-78) U/L Alkaline Phosphatase 86 (45-117) U/L Total Protein 9.0 H (6.4-8.2) gm/dl Albumin 3.9 (3.4-5.0) gm/dl Globulin 5.1 H (2.5-4.0) gm/dl Albumin/Globulin Ratio 0.8 L (0.9-2) Medications Administered Current Inpatient Medications Ampicillin Sodium/Sulbactam Sodium 3,000 mg/ Sodium Chloride 108 mls @ 200 mls/hr IV Q6H ALEYDA; Protocol Stop: 08/29/19 19:59 Last Infusion: 08/20/19 08:48 Dose: Infused Documented by: Dexamethasone Sodium Phosphate (10 mg/ Syringe) 2.5 mls @ 1 mls/min IV Q8 ALEYDA Stop: 08/20/19 14:03 Last Admin: 08/20/19 05:17 Dose: 1 mls/min Documented by: Ketorolac Tromethamine (Toradol) 15 mg IV Q6H PRN PRN Reason: Pain Stop: 08/24/19 20:16
--- NOTE | 2019-08-20 11:31 | Discharge Summary ---
Date of Service August 20, 2019 Admission HPI Per Admitting Provider 29-year-old female with past medical history of recurrent strep was seen at the [facility] urgent care this morning and sent for to the ER for worsening sore throat. Pt said that she has been having sore throat for about 2 weeks. She said that sore throat worst when she tries to eat or drink. She said that she has not eaten much today because of the sore throat. She said that her pain is about 8 out 10 in intensity. She said that last night she had chills. She said that she saw ENT in the past who recommended tonsillectomy, but never had a chance to schedule. CT soft tissue neck showed enlargement and hyperemia of the palatine tonsils consistent with acute tonsillitis. 1.4 x 0.9 cm left peritonsillar hypodense focus which suggests a small developing peritonsillar abscess. Moderate associated inflammation effaces the oropharynx with mild airway narrowing. Denies any chest pain, palpitation, dizziness, fever, recent traveling or any known exposure to anyone tested positive with COVID-19. Admission Exam Per Admitting Provider General- No acute distress Head- atraumatic Eyes- PERRL, EOMI, ENT- L tonsil enlarge Neck- no JVD, +lymph node tenderness in left side of the neck Lungs- clear to auscultation Heart- regular rhythm; no murmur Abdomen- normal bowel sounds, soft, nontender Extremities- no calf tenderness Neuro- alert, oriented x 3; PERRL, EOMI; no facial palsy; no dysarthria Skin- warm & dry Principal Diagnosis Peritonsillar abscess Discharge Exam General -Young female sitting up in bed, in no acute distress Head-normocephalic, atraumatic Eyes- PERRL, EOMI, ENT- L tonsil enlarge Neck- no JVD, + slight lymph node tenderness in left side of the neck Lungs- clear to auscultation bilaterally, no wheezing or rhonchi noted Heart- regular rhythm; no murmur Abdomen- normal bowel sounds, soft, nontender Extremities- no calf tenderness, moves extremities spontaneously Neuro- alert, oriented x 3; PERRL, EOMI; no facial palsy; no dysarthria, no extremity spontaneously Skin- warm & dry Discharge Data Allergies Allergy/AdvReac Type Severity Reaction Status Date / Time nitrofurantoin Allergy Unknown ` Verified 08/19/19 14:26 Consultations 08/19/19 16:09 ED Decision to Admit Stat 08/19/19 19:30 Consult Otolaryngology (Head and Neck) Routine Ordered Studies 08/19/19 14:04 CT soft tissue neck w con Stat IMPRESSION: 1. Enlargement and hyperemia of the palatine tonsils consistent with acute tonsillitis. 1.4 x 0.9 cm left peritonsillar hypodense focus which suggests a small developing peritonsillar abscess. Moderate associated inflammation effaces the oropharynx with mild airway narrowing. 2. Multiple mildly enlarged left cervical lymph nodes which are likely reactive. Hospital Course (1) Peritonsillar abscess: (2) Sore throat: presented with worsening sore throat CT Neck showed enlargement and hyperemia of the palatine tonsils consistent with acute tonsillitis. 1.4 x 0.9 cm left peritonsillar hypodense focus which suggests a small developing peritonsillar abscess. Moderate associated inflammation effaces the oropharynx with mild airway narrowing on admission Received IV Clinda and Decadron in the ER Denies any difficulty to breathe ENT Consulted Started on IV Unasyn Case discussed with ENT Dr. Dailey that recommended IV Decadron 10mg x 3 doses and soft diet No plan for any surgical procedure since the Peritonsillar abscess is small Toradol for pain Dr. Dailey evaluated the patient this morning, plan to discharge patient on Augmentin and Medrol pack. Plan to follow-up with ENT in 1 to 2 weeks. Lymph Node Enlargement Mostly related to the acute tonsillitis CT showed multiple mildly enlarged left cervical lymph nodes which are likely reactive. Dispo: Plan to discharge home and close follow-up with ENT. Total Time Total Time Spent Total Time Spent (In Minutes): 40 Total Time Includes: Examination of the Patient, Discharge Planning, Medication Reconciliation and Communication With Other Providers Discharge Plan Discharge Items Patient Disposition: Home - Self-Care Reason For Visit: SORE THROAT Discharge Diagnosis: Peritonsillar abscess Activity: Per Instructions section Non-emergency contact: Primary Care Provider and Specialist Call non-emergency contact if: you have any medication questions and your symptoms worsen Follow-up/Referrals: Jenniffer Montgomery, [Primary Care Provider] - Diet: Regular Diet Texture: Mechanical soft (ground) Addtl Attending Provider Instructions: As discussed with ENT physician, Dr. Dailey, take antibiotic, Augmentin, for next 10 days. Also take steroid, Medrol pack, as prescribed. You should follow-up with Dr. Dailey within 1 to 2 weeks. In the meantime if you have any questions or concerns, call her office at . If your symptoms worsen, and become more severe, recommend to present to emergency room, for further evaluation. Pending Studies at Discharge: No Stand-Alone Forms: My [facility] [employer], Smoking Cessation Medications and DC Order Prescriptions: New amoxicillin-pot clavulanate [Augmentin] 875-125 mg tablet 1 tab PO Q12H 10 Days Qty: 20 RF: 0 methylprednisolone [Medrol (C[place]le)] 4 mg tablets,dose pack 4 mg PO UD Qty: 21 RF: 0 Continued Excedrin Extra Strength 250-250-65 mg Tablet 2 tab PO Q6H PRN (Reason: Pain) RF: 0 Women's Multivitamin 18 mg iron-400 mcg-500 mg Tablet 1 tab PO QAM RF: 0 Discharge Orders: Discharge Order (Routine); Ordered 08/20/19 Ordered By: Matthew Maldonado Admission Data Admit Date/Time: 08/19/19 18:28 Attending Provider: Matthew Maldonado Admit Provider: Kyle Delong Primary Care Provider: Jenniffer Montgomery Other Providers: Kyle Delong ; Thom Dailey
== END 2019-08-20 13:52 | disposition home or self-care (01) | DRG 153 ==
LOC: ED 13:12 → 3E 18:28 → SUATTDRO 18:28 → 3E 19:15